=== PATIENT | male | born 1980 | race Caucasian/White ===

== ENCOUNTER 2018-06-08 20:00 | Emergency (ER) | payer OTHER ==
[2018-06-08] MEDS ORDERED: Lidocaine 1% w/Epinephrine 1:100K 20 ML VIAL ONE (20:25)
[2018-06-08] MEDS ORDERED: Lidocaine 1% 20 ML MDV ONE (20:25)
[2018-06-08] MEDS ORDERED: Bacitracin Zinc 1 Packet ONE (20:56)
== END 2018-06-08 21:05 | disposition home or self-care (01) ==
LOC: SCSER 20:00
DX: S71.112A Laceration without foreign body, left thigh, initial encounter (principal); W26.8XXA Contact with other sharp object(s), not elsewhere classified, initial encounter
CPT/HCPCS: 12001; J2001

== ENCOUNTER 2018-07-04 14:50 | Outpatient (CLI) | payer OTHER ==
--- NOTE | 2018-07-04 16:28 | ULT ---
ULTRASOUND SCROTUM TESTICLES DOPPLER DUPLEX: 07/04/18 HISTORY: 38-year-old male. N50.812, testicular pain, left. N50.89, testicular swelling. TECHNIQUE: Chen-scale evaluation of intrascrotal contents. Color flow Doppler and spectral waveform analysis of the testicles. FINDINGS: Right testicle: 4 x 3 x 2.5 cm. Left testicle: 4 x 2.5 x 2.5 cm. Right epididymal head: 0.9 x 0.9 cm. Left epididymal head: 1.3 x 1.1 cm (it is uncertain whether what is being measured as the left epidid ymal head is actually the left epididymal head). Testicular echogenicity: Normal. Testicular blood flow: Bilaterally symmetrical. Intratesticular mass: None. Hydrocele: None. Varicocele: Multiple, tortuous dilated blood vessels in the left scrotum. IMPRESSION: Left sided varicocele. PATRICK Daniels POS: [place]
== END 2018-07-04 14:51 | disposition home or self-care (01) ==
LOC: SCSULT 14:50
PROVIDERS: ATTEND Family Medicine
DX: N50.812 Left testicular pain (principal); N50.89 Other specified disorders of the male genital organs; I86.1 Scrotal varices
CPT/HCPCS: 76870; 93976

== ENCOUNTER 2024-08-23 08:54 | Outpatient (CLI) | payer BC | END 2024-08-23 08:55 | disposition home or self-care (01) | LOC: LABBT 08:54 | PROVIDERS: ATTEND Urology | DX: Z01.810 Encounter for preprocedural cardiovascular examination (principal); N20.1 Calculus of ureter | CPT/HCPCS: 93005; 93010 ==

== ENCOUNTER 2024-08-25 08:44 | Day surgery (SDC) | payer BC ==
[2024-08-23 09:02] VITALS: BMI 25.7
[2024-08-25] MEDS ORDERED: Dexamethasone 4 mg/ml Vial ONE (09:34)
[2024-08-25] MEDS ORDERED: fentaNYL PF 100 MCG/2 ML SYRINGE ONE ×2 (09:34→12:09)
[2024-08-25] MEDS ORDERED: Midazolam HCl 2 mg/2 ml Vial ONE (09:34)
[2024-08-25] MEDS ORDERED: PROPOFOL 20 ML ONE (09:34)
[2024-08-25] MEDS ORDERED: Lidocaine 1% PF 5 ML VIAL ONE (09:34)
[2024-08-25] MEDS ORDERED: Ondansetron PF 4 MG/2 ML Vial ONE (09:34)
[2024-08-25] MEDS ORDERED: LevoFLOXacin D5W 500 mg (100 mL) BAG ONE (10:33)
[2024-08-25] MEDS ORDERED: Phenazopyridine HCl 100 MG TAB ONE (12:09)
[2024-08-25] MEDS ORDERED: Oxybutynin 5 MG TAB ONE (12:09)
[2024-08-25] MEDS ORDERED: HYDROcodone/Acetaminophen 5/325 mg Tablet ONE (14:16)
== END 2024-08-25 14:40 | disposition home or self-care (01) ==
LOC: SDC 08:44
PROVIDERS: ATTEND Urology
DX: N20.1 Calculus of ureter (principal); N40.1 Benign prostatic hyperplasia with lower urinary tract symptoms; M47.812 Spondylosis without myelopathy or radiculopathy, cervical region; Z79.899 Other long term (current) drug therapy; Z98.890 Other specified postprocedural states
CPT/HCPCS: 82365; 88300; C1769; C2617; J1100; J1956; J2250; J2405; J2704

== ENCOUNTER 2024-11-10 14:02 | Outpatient (CLI) | payer BC | END 2024-11-10 14:03 | disposition home or self-care (01) | LOC: SCSRAD 14:02 | PROVIDERS: ATTEND Family Medicine | DX: S19.9XXA Unspecified injury of neck, initial encounter (principal) | CPT/HCPCS: 72040 ==

== ENCOUNTER 2025-07-18 10:27 | Outpatient (CLI) | payer BC | END 2025-07-18 10:28 | disposition home or self-care (01) | LOC: SCSRAD 10:27 | PROVIDERS: ATTEND Family Medicine | DX: S69.91XA Unspecified injury of right wrist, hand and finger(s), initial encounter (principal) ==